=== PATIENT | female | born 1945 | race Caucasian/White ===

== ENCOUNTER → 2016-05-28 | Outpatient (CLI) | payer BC ==
--- NOTE | 2016-05-28 10:39 | DIAGNOSTIC IMAGING REPORT ---
LEFT HAND MIN 3 VIEWS ROUTINE CLINICAL HISTORY: M05.9 Rheumatoid arthritis, [id number] High risk medica COMPARISON: None. DISCUSSION: Bony mineralization appears normal for age. There are no acute fractures. There are osteoarthritic type changes present at the level of the interphalangeal joint of the thumb. There are periarticular calcifications located at the level of the interphalangeal joint of the thumb and distal interphalangeal joint of the third finger. Within the wrist, there are lucencies involving the capitate and hamate, possibly representing erosions. There is also a cystic lucency/erosion involving the base of the first metacarpal. IMPRESSION: 1. Osteoarthritic type changes most pronounced the level of the distal interphalangeal joint of third digit and interphalangeal joint of the thumb 2. No acute fractures 3. Normal mineralization for age 4. Cyst/bony erosions involving the capitate, hamate, and base of the first metacarpal. Electronically signed by: Stalin Belcher M.D. 05/28/2016 10:37 AM Dictated Date/Time: 05/28/2016 10:35 AM
--- NOTE | 2016-05-28 10:43 | DIAGNOSTIC IMAGING REPORT ---
RIGHT HAND MIN 3 VIEWS ROUTINE CLINICAL HISTORY: M05.9 Rheumatoid arthritis, [id number] High risk medica Right pain COMPARISON: None. DISCUSSION: Considerable degenerative change first carpometacarpal joint. Mild degenerative change of all additional carpometacarpal joints. Alignment is anatomic. There are no significant marginal erosions. There is no evidence for soft tissue swelling. IMPRESSION: Moderate degenerative change primarily at the first carpometacarpal joint. Mild degenerative change of all interphalangeal joints. No significant marginal erosions. Electronically signed by: Tim Coughlin M.D. 05/28/2016 10:42 AM Dictated Date/Time: 05/28/2016 10:35 AM
[2016-05-28 12:27] LABS: BASO % 0.4 %; BASO ABS # 0.02 K/uL (0-0.2); COMPLETE YES; EOS % 1.2 %; HEMATOCRIT 40.7 % (37-47); IG% 0.2 %; LYMPH % 28.7 %; MEAN CELL VOLUME 93.6 fL (80-100); MEAN CORPUSCULAR HEMOGLOBIN 31.7 pg (25-34); MEAN CORPUSCULAR HGB CONC 33.9 g/dl (32-36); MEAN PLATELET VOLUME 9.7 fL (7.4-10.4); MONO % 9.4 %; NEUT % 60.1 %; PLATELET COUNT 268 K/uL (130-400); RED BLOOD COUNT 4.35 M/uL (4.2-5.4); WHITE BLOOD COUNT 4.88 K/uL (4.8-10.8)
[2016-05-28 12:42] LABS: ALT/SGPT 48 U/L (12-78)
[2016-05-28 12:45] LABS: ALKALINE PHOSPHATASE 75 U/L (45-117); AST/SGOT 21 U/L (15-37)
== END | disposition home or self-care (01) ==
LOC: C.RAD1850 10:08
PROVIDERS: ATTEND Internal Medicine Rheumatology
DX: M05.9 Rheumatoid arthritis with rheumatoid factor, unspecified (principal); M15.9 Polyosteoarthritis, unspecified; Z79.899 Other long term (current) drug therapy

== ENCOUNTER → 2016-08-26 | Outpatient (CLI) | payer BC ==
[2016-08-26 12:30] LABS: BASO % 0.4 %; BASO ABS # 0.02 K/uL (0-0.2); COMPLETE YES; EOS % 1.9 %; HEMATOCRIT 41.6 % (37-47); IG% 0.2 %; LYMPH % 30.6 %; LYMPH ABS # 1.43 K/uL (1.2-3.4); MEAN CELL VOLUME 95.6 fL (80-100); MEAN CORPUSCULAR HEMOGLOBIN 31.3 pg (25-34); MEAN CORPUSCULAR HGB CONC 32.7 g/dl (32-36); MEAN PLATELET VOLUME 9.5 fL (7.4-10.4); MONO % 11.1 %; NEUT % 55.8 %; PLATELET COUNT 278 K/uL (130-400); RED BLOOD COUNT 4.35 M/uL (4.2-5.4); WHITE BLOOD COUNT 4.68 K/uL (4.8-10.8)
[2016-08-26 13:24] LABS: ALT/SGPT 51 U/L (12-78); AST/SGOT 24 U/L (15-37)
[2016-08-26 13:26] LABS: ALKALINE PHOSPHATASE 71 U/L (45-117)
== END | disposition home or self-care (01) ==
LOC: C.LAB1850 10:12
PROVIDERS: ATTEND Internal Medicine Rheumatology
DX: M05.9 Rheumatoid arthritis with rheumatoid factor, unspecified (principal); Z79.899 Other long term (current) drug therapy; M15.9 Polyosteoarthritis, unspecified

== ENCOUNTER → 2016-09-30 | Outpatient (CLI) | payer BC ==
--- NOTE | 2016-09-30 16:01 | MAMMOGRAPHY REPORT ---
BILATERAL DIGITAL SCREENING MAMMOGRAM WITH CAD: 09/30/2016 CLINICAL HISTORY: Routine screening. TECHNIQUE: Bilateral CC and MLO views were obtained. Current study was also evaluated with a Compute r Aided Detection (CAD) system. COMPARISON: Comparison is made to exams dated: 09/25/2015 mammogram, 09/21/2014 mammogram, 09/20/2013 m ammogram, 09/16/2012 mammogram, 09/16/2011 mammogram, and 09/10/2010 mammogram - [facility]ter. BREAST COMPOSITION: The tissue of both breasts is almost entirely fatty. FINDINGS: There are scattered bilateral benign round and rim calcifications. No suspicious mass, arc hitectural distortion or cluster of suspicious microcalcifications is seen. IMPRESSION: ACR BI-RADS CATEGORY 1: NEGATIVE There is no mammographic evidence of malignancy. A 1 year screening mammogram is recommended. The pa tient will receive written notification of the results. Approximately 10% of breast cancers are not detected with mammography. A negative mammographic report should not delay biopsy if a clinically suggestive mass is present. Carole Glass M.D. ay/:09/30/2016 14:41:26 [employer]: Timur Proctor RT(R)(M), [facility] letter sent: Normal 1/2 BI-RADS Code: ACR BI-RADS Category 1: Negative
== END | disposition home or self-care (01) ==
LOC: C.MAMM 09:53
PROVIDERS: ATTEND Nurse Practitioner
DX: Z12.31 Encounter for screening mammogram for malignant neoplasm of breast (principal)

== ENCOUNTER → 2016-10-04 | Outpatient (CLI) | payer BC ==
[2016-10-04 13:04] LABS: ESTIMATED AVERAGE GLUCOSE 151 mg/dl; HA1C FLAG Normal (Normal)
[2016-10-04 13:09] LABS: CHOLESTEROL/HDL RATIO 4.6
== END | disposition home or self-care (01) ==
LOC: C.LABPVFM 08:43
PROVIDERS: ATTEND Nurse Practitioner
DX: E11.9 Type 2 diabetes mellitus without complications (principal); E78.00 Pure hypercholesterolemia, unspecified

== ENCOUNTER → 2017-01-09 | Outpatient (CLI) | payer BC ==
[2017-01-09 12:49] LABS: BASO % 0.4 %; BASO ABS # 0.02 K/uL (0-0.2); COMPLETE YES; EOS % 1.1 %; IG% 0.2 %; LYMPH % 36.3 %; LYMPH ABS # 1.65 K/uL (1.2-3.4); MEAN CELL VOLUME 91.9 fL (80-100); MEAN CORPUSCULAR HEMOGLOBIN 30.9 pg (25-34); MEAN CORPUSCULAR HGB CONC 33.7 g/dl (32-36); MEAN PLATELET VOLUME 9.7 fL (7.4-10.4); MONO % 8.8 %; NEUT % 53.2 %; PLATELET COUNT 263 K/uL (130-400); RED BLOOD COUNT 4.46 M/uL (4.2-5.4); WHITE BLOOD COUNT 4.55 K/uL (4.8-10.8)
[2017-01-09 13:06] LABS: ALT/SGPT 41 U/L (12-78); AST/SGOT 22 U/L (15-37)
[2017-01-09 13:09] LABS: ALKALINE PHOSPHATASE 76 U/L (45-117)
== END | disposition home or self-care (01) ==
LOC: C.LAB1850 09:59
PROVIDERS: ATTEND Internal Medicine Rheumatology
DX: M05.9 Rheumatoid arthritis with rheumatoid factor, unspecified (principal); Z79.899 Other long term (current) drug therapy; M25.562 Pain in left knee

== ENCOUNTER → 2017-04-10 | Outpatient (CLI) | payer BC ==
[~2017-04-10] MED LIST: ALBINS NEB; ATOR-26 PO; FLM4 PO; FOLI1TAB8 PO; GLC/500 PO; GUAI1TAB69 PO; HYDR12.55 PO; KRIL1000 PO; LISI-725 PO; MELO7.5T5 PO; METH2.5T PO
[2017-04-10 13:12] LABS: HEMOGLOBIN A1C 6.7 % (4.5-5.6)
[2017-04-10 14:05] LABS: BLOOD UREA NITROGEN 27 mg/dl (7-18); CALCIUM 9.3 mg/dl (8.5-10.1); CARBON DIOXIDE 30 mmol/L (21-32); CREATININE 1.14 mg/dl (0.60-1.20); GLUCOSE 138 mg/dl (70-99); POTASSIUM 3.9 mmol/L (3.5-5.1); SODIUM 138 mmol/L (136-145)
[2017-04-10 14:08] LABS: CHOLESTEROL 235 mg/dl (0-200); LDL CHOLESTEROL CALCULATED 112 mg/dl
== END | disposition home or self-care (01) ==
LOC: C.LABPVFM 08:07
PROVIDERS: ATTEND Nurse Practitioner
DX: E11.9 Type 2 diabetes mellitus without complications (principal); I10 Essential (primary) hypertension; E78.00 Pure hypercholesterolemia, unspecified

== ENCOUNTER → 2017-05-12 | Outpatient (CLI) | payer BC ==
[2017-05-12 12:53] LABS: BASO % 0.2 %; BASO ABS # 0.01 K/uL (0-0.2); EOS ABS # 0.05 K/uL (0-0.5); HEMATOCRIT 42.5 % (37-47); HEMOGLOBIN 14.1 g/dL (12.0-16.0); IG# 0.01 K/uL (0.00-0.02); LYMPH ABS # 1.77 K/uL (1.2-3.4); MEAN CELL VOLUME 92.4 fL (80-100); MEAN CORPUSCULAR HEMOGLOBIN 30.7 pg (25-34); MEAN CORPUSCULAR HGB CONC 33.2 g/dl (32-36); MEAN PLATELET VOLUME 9.9 fL (7.4-10.4); MONO % 8.3 %; MONO ABS # 0.42 K/uL (0.11-0.59); NEUT % 55.3 %; NEUT ABS # 2.79 K/uL (1.4-6.5); PLATELET COUNT 254 K/uL (130-400); RED CELL DISTRIBUTION WIDTH SD 47.1 fL (36.4-46.3); WHITE BLOOD COUNT 5.05 K/uL (4.8-10.8)
[2017-05-12 14:06] LABS: ALBUMIN 3.9 gm/dl (3.4-5.0); ALKALINE PHOSPHATASE 73 U/L (45-117); ALT/SGPT 48 U/L (12-78); AST/SGOT 22 U/L (15-37); TOTAL PROTEIN 7.5 gm/dl (6.4-8.2)
== END | disposition home or self-care (01) ==
LOC: C.LAB1850 10:16
PROVIDERS: ATTEND Internal Medicine Rheumatology
DX: M05.9 Rheumatoid arthritis with rheumatoid factor, unspecified (principal); Z79.899 Other long term (current) drug therapy; M25.562 Pain in left knee

== ENCOUNTER 2017-07-05 07:30 | Observation (INO) | payer BC ==
[~2017-07-05] VITALS: Ht 167.6 cm; Wt 81.9 kg
[2017-07-05] MEDS ORDERED: MoRPHine SULFATE 10 MG/ML CARP/VIAL IV STA (07:49)
[2017-07-05] MEDS ORDERED: ONDANSETRON INJ 2 MG/ML 2 ML VIAL IV STA (07:49)
[2017-07-05 08:11] LABS: BASO % 0.1 %; BASO ABS # 0.01 K/uL (0-0.2); EOS % 0.8 %; EOS ABS # 0.06 K/uL (0-0.5); HEMOGLOBIN 13.3 g/dL (12.0-16.0); IG# 0.01 K/uL (0.00-0.02); LYMPH % 17.8 %; LYMPH ABS # 1.41 K/uL (1.2-3.4); MEAN CELL VOLUME 89.7 fL (80-100); MEAN CORPUSCULAR HEMOGLOBIN 30.6 pg (25-34); MEAN CORPUSCULAR HGB CONC 34.1 g/dl (32-36); MEAN PLATELET VOLUME 9.4 fL (7.4-10.4); MONO % 4.9 %; MONO ABS # 0.39 K/uL (0.11-0.59); NEUT % 76.3 %; NEUT ABS # 6.06 K/uL (1.4-6.5); PLATELET COUNT 238 K/uL (130-400); RED CELL DISTRIBUTION WIDTH CV 13.8 % (11.5-14.5); RED CELL DISTRIBUTION WIDTH SD 45.2 fL (36.4-46.3); WHITE BLOOD COUNT 7.94 K/uL (4.8-10.8)
[2017-07-05] MEDS ORDERED: GLC/500 PO (08:20)
[2017-07-05] MEDS ORDERED: LISI-725 PO (08:20)
[2017-07-05] MEDS ORDERED: METH2.5T PO (08:20)
[2017-07-05] MEDS ORDERED: MELO7.5T5 PO (08:20)
[2017-07-05] MEDS ORDERED: FOLI1TAB8 PO (08:20)
[2017-07-05] MEDS ORDERED: HYDR12.55 PO (08:20)
[2017-07-05] MEDS ORDERED: ATOR-26 PO (08:20)
[2017-07-05] MEDS ORDERED: ALBINS NEB (08:20)
[2017-07-05] MEDS ORDERED: KRIL1000 PO (08:20)
[2017-07-05] MEDS ORDERED: GUAI1TAB69 PO (08:20)
--- NOTE | 2017-07-05 08:24 | EMERGENCY ROOM VISIT NOTE ---
History First contact with patient: 07:37 Chief Complaint: HIP PAIN Stated Complaint: LEFT SIDED HIP PAIN History of Present Illness The patient is a 71 year old female who presents to the Emergency Room with complaints of pain in her left hip. The patient reports that she had a sudden onset of pain in the left hip/pelvis which started approximately 2.5 hours ago. She states that she was okay last night and got up in the middle of the night to go to the bathroom. She then woke up with severe and sudden onset of pain. She rates the discomfort a 10/10 and states it is a sharp pain which is hard to describe. The pain radiates from the back to the lower abdomen. She has been nauseous and had one episode of vomiting which she feels may have been secondary to the pain. She states that she attempted to walk around and change position without any improvement of her symptoms. The pain does not radiate into her leg. She denies numbness or weakness. She does report a history of rheumatoid arthritis and osteoarthritis and has occasional aches in her back and right hip. She recently had her meloxicam dosage lowered. She denies chest pain, shortness of breath, changes in bowel movements or urinary symptoms. Review of Systems A complete 10 point review of systems was reviewed with the patient with pertinent positives and negatives as per history of present illness. All else were negative. Past Medical/Surgical History Medical Problems: (1) Diabetes mellitus, type II (2) Hyperlipidemia (3) Hypertension (4) Nephrolithiasis (5) Rheumatoid arthritis Social History Smoking Status: Former Smoker Housing Status: lives with family Current/Historical Medications Scheduled Atorvastatin (Lipitor), 80 MG PO DAILY Folic Acid (Folvite), 1 MG PO DAILY Hydrochlorothiazide (Hydrochlorothiazide), 1 TAB PO DAILY Krill Oil (Krill Oil), 1 CAP PO BID Lisinopril (Zestril), 20 MG PO DAILY Meloxicam (Mobic), 7.5 MG PO DAILY Metformin Hcl (Glucophage), 500 MG PO BID Methotrexate (Methotrexate), 2.5 MG PO WK Scheduled PRN Albuterol Sulf (Albuterol Sulfate), 1 DOSE NEB Q6 PRN for SOB/Wheezing Guaifenesin (Mucinex Maximum Strength), 1 TAB PO BID PRN for Nasal Congestion Physical Exam Vital Signs Date Time Temp Pulse Resp B/P (MAP) Pulse Ox O2 Delivery O2 Flow Rate FiO2 3/31/18 11:37 61 18 167/88 99 Room Air 07/05/17 09:40 71 16 153/91 100 Room Air 07/05/17 08:45 64 20 166/88 99 Room Air 07/05/17 07:35 36.4 81 20 182/90 97 Room Air Physical Exam VITALS: Vitals are noted on the nurse's note and reviewed by myself. Vital signs stable. GENERAL: This is a 71-year-old female, in no acute distress, nondiaphoretic, well-developed well-nourished. SKIN: The skin was without rashes. NECK: Supple without nuchal rigidity. HEART: Regular rate and rhythm without murmurs gallops or rubs. LUNGS: Clear to auscultation bilaterally without wheezes, rales or rhonchi. ABDOMEN: Positive bowel sounds x 4. Soft, mild tenderness in the left lower quadrant. No guarding or rebound tenderness. MUSCULOSKELETAL: Mild, vague tenderness in the left lumbar region. NEURO: Patient was alert and oriented to person place and time. Medical Decision & Procedures ER Provider Diagnostic Interpretation: CT SCAN OF THE ABDOMEN AND PELVIS WITHOUT IV CONTRAST IMPRESSION: 1. There is mild left hydroureteronephrosis. There is likely a 4 mm obstructing calculus in the left proximal ureter at the level of L4. The calcification is difficult to definitively localize within the left ureter secondary to significant adjacent streak artifact from metallic orthopedic hardware. A phlebolith is considered less likely. 2. Additional bilateral nonobstructing calculi are present in both kidneys. 3. Hepatomegaly and hepatic steatosis. 4. Mild colonic diverticulosis without CT evidence of acute diverticulitis. Laboratory Results 07/05/17 08:00 Red Blood Count 4.35, Mean Corpuscular Volume 89.7, Mean Corpuscular Hemoglobin 30.6, Mean Corpuscular Hemoglobin Concent 34.1, Mean Platelet Volume 9.4, Neutrophils (%) (Auto) 76.3, Lymphocytes (%) (Auto) 17.8, Monocytes (%) (Auto) 4.9, Eosinophils (%) (Auto) 0.8, Basophils (%) (Auto) 0.1, Neutrophils # (Auto) 6.06, Lymphocytes # (Auto) 1.41, Monocytes # (Auto) 0.39, Eosinophils # (Auto) 0.06, Basophils # (Auto) 0.01 07/05/17 08:00 Test 07/05/17 08:00 07/05/17 09:30 White Blood Count 7.94 K/uL (4.8-10.8) Red Blood Count 4.35 M/uL (4.2-5.4) Hemoglobin 13.3 g/dL (12.0-16.0) Hematocrit 39.0 % (37-47) Mean Corpuscular Volume 89.7 fL (80-100) Mean Corpuscular Hemoglobin 30.6 pg (25-34) Mean Corpuscular Hemoglobin Concent 34.1 g/dl (32-36) Platelet Count 238 K/uL (130-400) Mean Platelet Volume 9.4 fL (7.4-10.4) Neutrophils (%) (Auto) 76.3 % Lymphocytes (%) (Auto) 17.8 % Monocytes (%) (Auto) 4.9 % Eosinophils (%) (Auto) 0.8 % Basophils (%) (Auto) 0.1 % Neutrophils # (Auto) 6.06 K/uL (1.4-6.5) Lymphocytes # (Auto) 1.41 K/uL (1.2-3.4) Monocytes # (Auto) 0.39 K/uL (0.11-0.59) Eosinophils # (Auto) 0.06 K/uL (0-0.5) Basophils # (Auto) 0.01 K/uL (0-0.2) RDW Standard Deviation 45.2 fL (36.4-46.3) RDW Coefficient of Variation 13.8 % (11.5-14.5) Immature Granulocyte % (Auto) 0.1 % Immature Granulocyte # (Auto) 0.01 K/uL (0.00-0.02) Anion Gap 10.0 mmol/L (3-11) Est Creatinine Clear Calc Drug Dose 40.3 ml/min Estimated GFR () 44.9 Estimated GFR (Non- 38.8 BUN/Creatinine Ratio 21.5 (10-20) Calcium Level 9.6 mg/dl (8.5-10.1) Total Bilirubin 0.6 mg/dl (0.2-1) Aspartate Amino Transf (AST/SGOT) 23 U/L (15-37) Alanine Aminotransferase (ALT/SGPT) 38 U/L (12-78) Alkaline Phosphatase 78 U/L (45-117) Total Protein 7.7 gm/dl (6.4-8.2) Albumin 4.0 gm/dl (3.4-5.0) Globulin 3.7 gm/dl (2.5-4.0) Albumin/Globulin Ratio 1.1 (0.9-2) Urine Color YELLOW Urine Appearance CLEAR (CLEAR) Urine pH 8.5 (4.5-7.5) Urine Specific [place] 1.020 (1.000-1.030) Urine Protein NEG (NEG) Urine Glucose (UA) NEG (NEG) Urine Ketones NEG (NEG) Urine Occult Blood 3+ (NEG) Urine Nitrite NEG (NEG) Urine Bilirubin NEG (NEG) Urine Urobilinogen NEG (NEG) Urine Leukocyte Esterase TRACE (NEG) Urine WBC (Auto) 1-5 /hpf (0-5) Urine RBC (Auto) >30 /hpf (0-4) Urine Hyaline Casts (Auto) 1-5 /lpf (0-5) Urine Epithelial Cells (Auto) 10-20 /lpf (0-5) Urine Bacteria (Auto) NEG (NEG) Medications Administered Medications (Trade) Dose Ordered Sig/Didier Route Start Time Stop Time Status Last Admin Dose Admin Morphine Sulfate (MoRPHine SULFATE INJ) 6 mg NOW STAT IV 07/05/17 07:49 07/05/17 07:51 DC 07/05/17 08:07 6 MG Ondansetron HCl (Zofran Inj) 4 mg NOW STAT IV 07/05/17 07:49 07/05/17 07:51 DC 07/05/17 08:07 4 MG Hydromorphone HCl (Dilaudid Inj) 0.5 mg NOW STAT IV 07/05/17 08:30 07/05/17 08:31 DC 07/05/17 08:45 0.5 MG Sodium Chloride 1,000 ml @ 999 mls/hr Q1H1M STAT IV 07/05/17 08:34 07/05/17 09:34 DC 07/05/17 08:45 999 MLS/HR Hydromorphone HCl (Dilaudid Inj) 0.5 mg NOW STAT IV 07/05/17 10:28 07/05/17 10:29 DC 3/31/18 10:53 0.5 MG Tamsulosin HCl (Flomax Cap) 0.4 mg NOW ONCE PO 07/05/17 11:45 07/05/17 11:46 DC 07/05/17 11:47 0.4 MG ED Course The patient was evaluated as above. Labs were drawn and IV access was obtained. Patient was medicated with 6 mg morphine and 4 mg Zofran IV. Patient reported no improvement of pain. 0.5 mg Dilaudid was ordered. She was also given 1 L normal saline solution. CT of the abdomen and pelvis was performed and read by radiology as above. Patient was reevaluated and stated she is still having a significant amount of pain. She does not feel she will be able to go home. She was given 0.5 mg Dilaudid. She will be admitted for pain control. [facility] They agreed to evaluate the patient for admission. Medical Decision Differential diagnosis includes kidney stone, diverticulitis, bowel obstruction , musculoskeletal pain, lumbar radiculopathy, among others. The patient is a 71-year-old female who presents today complaining of left hip/ pelvic pain. On exam this seemed to actually be left flank pain radiating into the left lower abdomen. CT did show hydroureteronephrosis of the left kidney as well as a probable 4 mm stone in the proximal ureter. Labs revealed no leukocytosis or anemia. Creatinine is 1.36, slightly elevated from the patient' s baseline. Urinalysis was not suggestive of infection, but was remarkable for 3+ blood. Patient was treated with several rounds of narcotic pain medication and still in a significant amount of pain. Options of care were discussed with the patient including admission for pain control versus discharge home in the patient does not feel she can be discharged home at this time. She may benefit from an anti-inflammatory, although has listed allergies to anti-inflammatories so these were avoided in the ED. The case was discussed with the [facility] who will admit the patient for further evaluation. The patient was independently evaluated by Dr. Keith, ED attending physician, who agreed with my assessment and treatment plan. Medication Reconcilliation Current Medication List: was personally reviewed by me Blood Pressure Screening Patient's blood pressure: Normal blood pressure Impression Primary Impression: Kidney stone Departure Information Referrals Ariana Gonzalez C.R.N.P (PCP) Patient Instructions [facility]
[2017-07-05 08:29] LABS: CALCIUM 9.6 mg/dl (8.5-10.1); CREATININE 1.36 mg/dl (0.60-1.20); POTASSIUM 3.7 mmol/L (3.5-5.1)
[2017-07-05] MEDS ORDERED: HYDROmorphone INJ 0.5 MG/0.5 ML SYR IV STA ×2 (08:30→10:28)
[2017-07-05 08:32] LABS: TOTAL PROTEIN 7.7 gm/dl (6.4-8.2)
[2017-07-05] MEDS ORDERED: SODIUM CHLORIDE 0.9% 1000ML 1,000 ML IV STA (08:34)
--- NOTE | 2017-07-05 08:44 | DIAGNOSTIC IMAGING REPORT ---
CT SCAN OF THE ABDOMEN AND PELVIS WITHOUT IV CONTRAST CLINICAL HISTORY: Left lower quadrant abdominal pain. COMPARISON STUDY: No priors. TECHNIQUE: CT scan of the abdomen and pelvis is performed from the lung bases to the proximal femora. Images are reviewed in the axial, sagittal, and coronal planes. IV contrast was not administered for this examination as per the referring clinician. A dose lowering technique was utilized adhering to the principles of ALARA. CT DOSE: 1552.22 mGy.cm FINDINGS: Lung bases: The heart is normal in size and without pericardial effusion. A small fat-containing Bochdalek hernia is seen at the left lung base. The lung bases are otherwise clear. There is a small hiatal hernia. Liver: The unenhanced liver is enlarged, measuring 19.5 cm in length. The liver demonstrates diminished attenuation consistent with hepatic steatosis. There is no intrahepatic biliary ductal dilatation. Gallbladder: Unremarkable. Spleen: Normal in size and attenuation. Pancreas: Unremarkable. Adrenal glands: Unremarkable. Kidneys: The unenhanced kidneys demonstrate cortical atrophy. There is no right-sided hydronephrosis. There is mild left-sided hydroureteronephrosis with associated perinephric stranding. The right proximal ureter is not well assessed due to significant streak artifact from adjacent orthopedic hardware. A 4 mm calculus anterior to the left psoas muscle at the level of L4 seen on #200 may represent an obstructing left ureteral calculus or less likely a phlebolith along the course of the gonadal vein. A 1.3 cm exophytic cyst arises from the left kidney. There are least 3 additional punctate nonobstructing left renal calculi. There are at least 3 punctate nonobstructing right renal calculi. Small parapelvic cysts are noted on the right. There is a circumaortic left renal vein. Abdominal vasculature: The abdominal aorta is normal in course and caliber noting moderate atherosclerotic calcification. Bowel: There is mild colonic diverticulosis without CT evidence of acute diverticulitis. No bowel obstruction is seen. The appendix is well-visualized and normal. Peritoneum: There is no intraperitoneal free air or abdominal ascites. Lymphadenopathy: None. Pelvic viscera: The bladder is normal as visualized. The uterus is surgically absent. No adnexal lesion is seen. Skeletal structures: The skeletal structures are osteopenic. There is moderate lumbosacral spondylosis with postoperative changes from L4 -S1 spinal fusion. A bone graft donor site is suggested in the right ilium. No lytic or blastic lesions are seen. IMPRESSION: 1. There is mild left hydroureteronephrosis. There is likely a 4 mm obstructing calculus in the left proximal ureter at the level of L4. The calcification is difficult to definitively localize within the left ureter secondary to significant adjacent streak artifact from metallic orthopedic hardware. A phlebolith is considered less likely. 2. Additional bilateral nonobstructing calculi are present in both kidneys. 3. Hepatomegaly and hepatic steatosis. 4. Mild colonic diverticulosis without CT evidence of acute diverticulitis. Electronically signed by: Sathya Mccartney M.D. 07/05/2017 8:43 AM Dictated Date/Time: 07/05/2017 8:30 AM
[2017-07-05] MEDS ORDERED: TAMSULOSIN HCL 0.4 MG CAP PO ONE (11:45)
--- NOTE | 2017-07-05 11:58 | History and Physical ---
History & Physical Date & Time of Service: Jul 05, 2017 at 11:49 Chief Complaint: Left Sided Hip Pain Primary Care Physician: Ariana Gonzalez C.R.N.P History of Present Illness Mrs. Barb Starkey is a 71 year old with past medical history significant for rheumatoid arthritis on methotrexate therapy, hyperlipidemia, hypertension, diabetes mellitus type 2. Patient was in her usual state of health until early this morning when she woke up at 05:00 with significant left flank discomfort. Initially felt as a intense pressure which progressed to a severe intense ache with a 10 out of 10 in severity. Pain starts at left flank and radiating through her side and stops at periumbilical region and groin. No aggravating or alleviating factors. Associated symptoms include vomiting 2 which was nonbilious and nonbloody and intermittent nausea. No sick contacts or recent travel. Denies fevers, chills, chest pain, shortness of breath, diaphoresis. No urinary or vaginal symptoms. No recent trauma or falls. Otherwise rest of ROS is negative. In the emergency department patient had CT imaging performed that showed obstructing stone with mild hydronephrosis. She was given intravenous morphine which has helped with the pain and is currently a 6 out of 10. Patient is afebrile hemodynamically stable. Of note patient denies any previous HX of nephrolithiasis Past Medical/Surgical History Medical Problems: (1) Diabetes mellitus, type II (2) Hyperlipidemia (3) Hypertension (4) Rheumatoid arthritis Social History Smoking Status: Former Smoker Allergies Coded Allergies: Iodinated Diagnostic Agents (Unverified Allergy, Unknown, ., 07/05/17) Iodine (Unverified Allergy, Unknown, SWELLING/DIFFICULTY BREATHING, ) Piroxicam (Unverified Allergy, Unknown, ., 07/05/17) Indomethacin (Unverified Adverse Reaction, Severe, N/V, 07/05/17) Home Medications Scheduled Atorvastatin (Lipitor), 80 MG PO DAILY Folic Acid (Folvite), 1 MG PO DAILY Hydrochlorothiazide (Hydrochlorothiazide), 1 TAB PO DAILY Krill Oil (Krill Oil), 1 CAP PO BID Lisinopril (Zestril), 20 MG PO DAILY Meloxicam (Mobic), 7.5 MG PO DAILY Metformin Hcl (Glucophage), 500 MG PO BID Methotrexate (Methotrexate), 2.5 MG PO WK Scheduled PRN Albuterol Sulf (Albuterol Sulfate), 1 DOSE NEB Q6 PRN for SOB/Wheezing Guaifenesin (Mucinex Maximum Strength), 1 TAB PO BID PRN for Nasal Congestion Review of Systems Constitutional: No fever, No chills, No sweats, No weight loss, No weakness, No fatigue, No problem reported Eyes: No worsening of vision, No eye pain, No redness, No discharge, No diplopia, No problem reported ENT: No hearing loss, No unusual epistaxis, No nasal symptoms, No sore throat, No tinnitus, No dental problems, No trouble swallowing, No problem reported Respiratory: No cough, No sputum, No wheezing, No shortness of breath, No dyspnea on exertion, No dyspnea at rest, No hemoptysis, No problem reported Abdomen: No pain, No nausea, No vomiting, No diarrhea, No constipation, No GI bleeding, No problem reported Musculoskeletal: + muscle pain Genitourinary - Female: No dysuria, No urinary frequency, No urinary urgency, No urinary incontinence, No urinary retention, No hematuria, No dysmenorrhea, No menorrhagia, No metrorrhagia, No rash, No vaginal bleeding, No vaginal discharge, No vaginal itching, No vulvodynia, No , No problem reported Neurologic: No memory loss, No paralysis, No weakness, No numbness/tingling, No vertigo, No balance problems, No problem reported Psychiatric: No depression symptoms, No anhedonism, No anxiety, No insomnia, No substance abuse, No problem reported Hematologic / Lymphatic: No abnormal bleeding/bruising, No clotting problems, No swollen lymph nodes, No night sweats, No problem reported Physical Exam Vital Signs Date Time Temp Pulse Resp B/P (MAP) Pulse Ox O2 Delivery O2 Flow Rate FiO2 07/05/17 11:37 61 18 167/88 99 Room Air 07/05/17 09:40 71 16 153/91 100 Room Air 07/05/17 08:45 64 20 166/88 99 Room Air 07/05/17 07:35 36.4 81 20 182/90 97 Room Air General Appearance: WD/WN, + mild distress (2/2 left flank pain) Head: normocephalic, atraumatic Eyes: normal inspection, PERRL, EOMI ENT: normal ENT inspection Neck: supple, no adenopathy, no JVD Respiratory/Chest: chest non-tender, lungs clear, normal breath sounds, no respiratory distress, no accessory muscle use Cardiovascular: regular rate, rhythm, no edema, no gallop, no JVD, no murmur Abdomen/GI: normal bowel sounds, non tender, soft, no organomegaly Back: + left CVA tenderness Extremities/Musculoskelatal: no pedal edema, non-tender Neurologic/Psych: no motor/sensory deficits, normal mood/affect, oriented x 3 Diagnostics Laboratory Results Results Past 24 Hours Test 07/05/17 08:00 07/05/17 09:30 Range/Units White Blood Count 7.94 4.8-10.8 K/uL Red Blood Count 4.35 4.2-5.4 M/uL Hemoglobin 13.3 12.0-16.0 g/dL Hematocrit 39.0 37-47 % Mean Corpuscular Volume 89.7 80-100 fL Mean Corpuscular Hemoglobin 30.6 25-34 pg Mean Corpuscular Hemoglobin Concent 34.1 32-36 g/dl Platelet Count 238 130-400 K/uL Mean Platelet Volume 9.4 7.4-10.4 fL Neutrophils (%) (Auto) 76.3 % Lymphocytes (%) (Auto) 17.8 % Monocytes (%) (Auto) 4.9 % Eosinophils (%) (Auto) 0.8 % Basophils (%) (Auto) 0.1 % Neutrophils # (Auto) 6.06 1.4-6.5 K/uL Lymphocytes # (Auto) 1.41 1.2-3.4 K/uL Monocytes # (Auto) 0.39 0.11-0.59 K/uL Eosinophils # (Auto) 0.06 0-0.5 K/uL Basophils # (Auto) 0.01 0-0.2 K/uL RDW Standard Deviation 45.2 36.4-46.3 fL RDW Coefficient of Variation 13.8 11.5-14.5 % Immature Granulocyte % (Auto) 0.1 % Immature Granulocyte # (Auto) 0.01 0.00-0.02 K/uL Sodium Level 139 136-145 mmol/L Potassium Level 3.7 3.5-5.1 mmol/L Chloride Level 105 98-107 mmol/L Carbon Dioxide Level 24 21-32 mmol/L Anion Gap 10.0 3-11 mmol/L Blood Urea Nitrogen 29 7-18 mg/dl Creatinine 1.36 0.60-1.20 mg/dl Est Creatinine Clear Calc Drug Dose 40.3 ml/min Estimated GFR () 44.9 Estimated GFR (Non- 38.8 BUN/Creatinine Ratio 21.5 10-20 Random Glucose 182 70-99 mg/dl Calcium Level 9.6 8.5-10.1 mg/dl Total Bilirubin 0.6 0.2-1 mg/dl Aspartate Amino Transf (AST/SGOT) 23 15-37 U/L Alanine Aminotransferase (ALT/SGPT) 38 12-78 U/L Alkaline Phosphatase 78 45-117 U/L Total Protein 7.7 6.4-8.2 gm/dl Albumin 4.0 3.4-5.0 gm/dl Globulin 3.7 2.5-4.0 gm/dl Albumin/Globulin Ratio 1.1 0.9-2 Urine Color YELLOW Urine Appearance CLEAR CLEAR Urine pH 8.5 4.5-7.5 Urine Specific [place] 1.020 1.000-1.030 Urine Protein NEG NEG Urine Glucose (UA) NEG NEG Urine Ketones NEG NEG Urine Occult Blood 3+ NEG Urine Nitrite NEG NEG Urine Bilirubin NEG NEG Urine Urobilinogen NEG NEG Urine Leukocyte Esterase TRACE NEG Urine WBC (Auto) 1-5 0-5 /hpf Urine RBC (Auto) >30 0-4 /hpf Urine Hyaline Casts (Auto) 1-5 0-5 /lpf Urine Epithelial Cells (Auto) 10-20 0-5 /lpf Urine Bacteria (Auto) NEG NEG Diagnostic Radiology CT A/P w/o contrast IMPRESSION 1. There is mild left hydroureteronephrosis. There is likely a 4 mm obstructing calculus in the left proximal ureter at the level of L4. The calcification is difficult to definitively localize within the left ureter secondary to significant adjacent streak artifact from metallic orthopedic hardware. A phlebolith is considered less likely. 2. Additional bilateral nonobstructing calculi are present in both kidneys. 3. Hepatomegaly and hepatic steatosis. 4. Mild colonic diverticulosis without CT evidence of acute diverticulitis. Impression Assessment and Plan HELEN 71/F admitted for nephrolithiasis. She continues to be in pain and having intermittent nausea. CT imaging obtained in the ED reveals stones with mild left hydronephrosis. 1) Nephrolithiasis with hydronephrosis - intravenous hydration - IV morphine for pain management - order toradol x1 now - Urology consultation; will appreciate recommendations 2) Diabetes Mellitus type II - check CBG as per nursing - insulin sliding scale 3) Hypertension - systolic in 160's likely 2/2 to pain - resume home antihypertensive therapy 4) Hyperlipidemia - stable; no active issues - resume atorvastatin 80 mg PO qHS 5) Hx of Rheumatoid arthritis - stable; no active issues - resume weekly MTX q Friday Admit: Med/Surg Diet: Heart Healthy Activity ad parish DVT ppx SQ heparin Precautions: Standard Code Status: FULL Resuscitation Status VTE Prophylaxis Will order VTE Prophylaxis: Yes
[2017-07-05] MEDS ORDERED: GLUCAGON FOR INJ 1 MG VIAL SQ PRN (12:00)
[2017-07-05] MEDS ORDERED: GLUCOSE 40% GEL 15 GM TUBE PO PRN (12:00)
[2017-07-05] MEDS ORDERED: GLUCOSE 10 TABS/TUBE PO PRN (12:00)
[2017-07-05] MEDS ORDERED: DEXTROSE 50% 50 ML SYR IV PRN (12:00)
[2017-07-05] MEDS ORDERED: MoRPHine SULFATE 4 MG/ML 1 ML CARP\\VIAL IV PRN (12:15)
[2017-07-05] MEDS ORDERED: MoRPHine SULFATE 2 MG/ML CARP IV PRN ×2 (12:15)
--- NOTE | 2017-07-05 12:21 | EMERGENCY ROOM VISIT NOTE ---
ED Visit Note First contact with patient: 07:37 I have personally evaluated this patient examined her and reviewed the pertinent labs and data. I have discussed the case with Kaye Bland, the physician assistant professor of marine biology and agree with the plan. Please refer to the PA note. This patient comes in as described above. She has significant flank pain. On my exam, she complains of pain but has no appreciable tenderness. CAT scan shows a proximal 4 mm stone. She's had multiple doses of IV pain medication. She has no fever or white count to suggest infection. We are going to mid of her pain management further treatment and evaluation. The patient is happy with the plan.
[2017-07-05 12:30] VITALS: O2SAT 99; Ht 167.6 cm; Wt 81.9 kg
[2017-07-05 13:00] VITALS: BP 139/73; PULSE 60; TEMP 36.8; O2SAT 98
[2017-07-05] MEDS ORDERED: IV FLUIDS COMPLETED PRN (14:15)
[2017-07-05 15:07] VITALS: BP 101/62; PULSE 57; TEMP 37.1; O2SAT 97
[2017-07-05] MEDS: HEPARIN SOD 5000 UNIT/0.5 ML CARP SQ SCH ×2 (15:26→22:38)
[2017-07-05] MEDS: SODIUM CHLORIDE 0.9% 1000ML 1,000 ML IV SCH (15:31)
[2017-07-05] MEDS: INSULIN ASPART 100 UNITS/ML 3 ML PEN SC SCH ×2 (17:15→21:00)
[2017-07-05] MEDS: METFORMIN HCL 500 MG TAB PO SCH (18:05)
[2017-07-05 23:20] VITALS: BP 139/75; PULSE 60; TEMP 37; O2SAT 97
[2017-07-06] MEDS: SODIUM CHLORIDE 0.9% 1000ML 1,000 ML IV SCH ×2 (01:49→11:35)
[2017-07-06] MEDS: HEPARIN SOD 5000 UNIT/0.5 ML CARP SQ SCH ×2 (07:17→13:43)
[2017-07-06 07:30] VITALS: BP 166/80; PULSE 63; TEMP 36.7; O2SAT 97
[2017-07-06] MEDS: INSULIN ASPART 100 UNITS/ML 3 ML PEN SC SCH ×3 (08:00→17:15)
[2017-07-06] MEDS ORDERED: HYDROCHLOROTHIAZIDE 25 MG TAB PO SCH (09:00)
[2017-07-06] MEDS ORDERED: ATORVASTATIN 40 MG TAB PO SCH (09:00)
[2017-07-06] MEDS ORDERED: LISINOPRIL 20 MG TAB PO SCH (09:00)
[2017-07-06] MEDS ORDERED: MELOXICAM 7.5 MG TAB PO SCH (09:00)
[2017-07-06 09:13] LABS: HEMATOCRIT 35.4 % (37-47); HEMOGLOBIN 11.9 g/dL (12.0-16.0); MEAN CELL VOLUME 90.1 fL (80-100); MEAN CORPUSCULAR HEMOGLOBIN 30.3 pg (25-34); MEAN CORPUSCULAR HGB CONC 33.6 g/dl (32-36); PLATELET COUNT 213 K/uL (130-400); RED CELL DISTRIBUTION WIDTH CV 13.9 % (11.5-14.5); RED CELL DISTRIBUTION WIDTH SD 46.1 fL (36.4-46.3); WHITE BLOOD COUNT 4.42 K/uL (4.8-10.8)
[2017-07-06 09:40] LABS: CALCIUM 8.5 mg/dl (8.5-10.1); CREATININE 1.04 mg/dl (0.60-1.20); POTASSIUM 3.8 mmol/L (3.5-5.1)
[2017-07-06] MEDS: METFORMIN HCL 500 MG TAB PO SCH ×2 (09:44→17:56)
[2017-07-06] MEDS ORDERED: ACETAMINOPHEN 325 MG TAB PO STA ×2 (09:56→16:32)
--- NOTE | 2017-07-06 11:58 | Urology Consultation ---
History General Date of Service: Jul 06, 2017. Primary Care Physician: Ariana Gonzalez C.R.N.P History of Present Illness Patient is a 71-year-old white female admitted to the emergency room with left flank pain. Pain was colicky in nature. She denies any fevers or chills. His never had a stone before. Denies any voiding difficulties. Currently she says she is not having any pain. Is also having no nausea or vomiting Laboratory Last Vital Signs Documentation Date Time Temp Pulse Resp B/P (MAP) Pulse Ox O2 Delivery O2 Flow Rate FiO2 07/06/17 07:52 Room Air 07/06/17 07:30 36.7 63 18 166/80 (108) 97 Last 24 Hours Test 07/05/17 13:10 07/05/17 13:15 07/05/17 16:58 07/05/17 20:34 Prothrombin Time 10.7 SECONDS Prothromb Time International Ratio 1.0 Bedside Glucose 149 mg/dl 116 mg/dl 124 mg/dl Test 07/06/17 08:12 07/06/17 08:59 Bedside Glucose 143 mg/dl White Blood Count 4.42 K/uL Red Blood Count 3.93 M/uL Hemoglobin 11.9 g/dL Hematocrit 35.4 % Mean Corpuscular Volume 90.1 fL Mean Corpuscular Hemoglobin 30.3 pg Mean Corpuscular Hemoglobin Concent 33.6 g/dl RDW Standard Deviation 46.1 fL RDW Coefficient of Variation 13.9 % Platelet Count 213 K/uL Mean Platelet Volume 9.0 fL Sodium Level 140 mmol/L Potassium Level 3.8 mmol/L Chloride Level 109 mmol/L Carbon Dioxide Level 28 mmol/L Anion Gap 3.0 mmol/L Blood Urea Nitrogen 20 mg/dl Creatinine 1.04 mg/dl Est Creatinine Clear Calc Drug Dose 52.7 ml/min Estimated GFR () 62.2 Estimated GFR (Non- 53.6 BUN/Creatinine Ratio 19.2 Random Glucose 137 mg/dl Calcium Level 8.5 mg/dl Labs were reviewed and are within normal limits unless listed below. Labs are available in the chart and at [facility] Problem List Medical Problems: (1) Kidney stone Status: Acute Social History Hx Tobacco Use In Past Year?: No History of MDRO No Allergies Coded Allergies: Iodinated Diagnostic Agents (Unverified Allergy, Unknown, ., 07/05/17) Iodine (Unverified Allergy, Unknown, SWELLING/DIFFICULTY BREATHING, ) Piroxicam (Unverified Allergy, Unknown, ., 07/05/17) Indomethacin (Unverified Adverse Reaction, Severe, N/V, 07/05/17) Medications Home Medications: Home Meds and Scripts Medications Dose Route/Sig Max Daily Dose Days Date Category Mucinex Maximum Strength (Guaifenesin) 1,200 Mg Tab 1 Tab PO BID PRN 07/05/17 Reported Albuterol Sulfate (Albuterol Sulf) 2.5 Mg/3 Ml Nebu 1 Dose NEB Q6 PRN 07/05/17 Reported Krill Oil 1 Cap Cap 1 Cap PO BID 07/05/17 Reported Folvite (Folic Acid) 1 Mg Tab 1 Mg PO DAILY 07/05/17 Reported Hydrochlorothiazide 12.5 Mg Tab 1 Tab PO DAILY 07/05/17 Reported Mobic (Meloxicam) 7.5 Mg Tab 7.5 Mg PO DAILY 07/05/17 Reported Glucophage (Metformin Hcl) 500 Mg Tab 500 Mg PO BID 07/05/17 Reported Zestril (Lisinopril) 20 Mg Tab 20 Mg PO DAILY 07/05/17 Reported Lipitor (Atorvastatin Calcium) 80 Mg Tab 80 Mg PO DAILY 07/05/17 Reported Methotrexate 2.5 Mg Tab 2.5 Mg PO WK 07/05/17 Reported Inpatient Medications: Current Inpatient Medications Medications (Trade) Dose Ordered Sig/Didier Route Start Time Stop Time Status Last Admin Dose Admin Atorvastatin Calcium (Lipitor Tab) 80 mg DAILY PO 07/06/17 09:00 08/05/17 08:59 07/06/17 09:44 80 MG Folic Acid (Folvite Tab) 1 mg DAILY PO 07/06/17 09:00 08/05/17 08:59 07/06/17 09:44 1 MG Lisinopril (Zestril Tab) 20 mg DAILY PO 07/06/17 09:00 08/05/17 08:59 07/06/17 09:43 20 MG Meloxicam (Mobic Tab) 7.5 mg DAILY PO 07/06/17 09:00 08/05/17 08:59 Future Hold Metformin HCl (Glucophage Tab) 500 mg BIDM PO 07/05/17 17:45 08/04/17 17:44 07/06/17 09:44 500 MG Hydrochlorothiazide (Hydrochlorothiazide Tab) 12.5 mg DAILY PO 07/06/17 09:00 08/05/17 08:59 07/06/17 09:43 12.5 MG Heparin Sodium (Porcine) (Heparin Sq 5000 Unit/0.5ml) 5,000 unit Q8H SQ 07/05/17 14:00 08/04/17 13:59 07/06/17 07:17 5,000 UNIT Insulin Aspart (novoLOG ASPART) SLIDING SCALE If C... ACHS SC 07/05/17 17:15 08/04/17 17:14 Glucose (Glucose 40% Gel) 15-30 GRAMS 15 GRAMS... UD PRN PO 07/05/17 12:00 08/04/17 11:59 Glucose (Glucose Chew Tab) 4-8 Tablets 4 Tabl... UD PRN PO 07/05/17 12:00 08/04/17 11:59 Dextrose (Dextrose 50% 50ML Syringe) 25-50ML OF 50% DW IV FOR... UD PRN IV 07/05/17 12:00 08/04/17 11:59 Glucagon (Glucagon Inj) 1 mg UD PRN SQ 07/05/17 12:00 08/04/17 11:59 Sodium Chloride 1,000 ml @ 100 mls/hr Q10H IV 07/05/17 13:30 07/06/17 19:29 07/06/17 11:35 100 MLS/HR Morphine Sulfate (MoRPHine SULFATE INJ) 1 mg Q4H PRN IV 07/05/17 12:15 07/19/17 12:14 Morphine Sulfate (MoRPHine SULFATE INJ) 2 mg Q4H PRN IV 07/05/17 12:15 07/19/17 12:14 Morphine Sulfate (MoRPHine SULFATE INJ) 3 mg Q4H PRN IV 07/05/17 12:15 07/19/17 12:14 Miscellaneous (Iv Fluids Completed) 1 ea PRN PRN N/A 07/05/17 14:15 07/05/18 14:14 Review of Systems Review of Systems Additional Comments: Review of systems reviewed from the history and physical and emergency room note Physical Exam Vital Signs: Vital Signs Past 12 Hours Date Time Temp Pulse Resp B/P (MAP) Pulse Ox O2 Delivery O2 Flow Rate FiO2 07/06/17 07:52 Room Air 07/06/17 07:30 36.7 63 18 166/80 (108) 97 Room Air Physical Exam: General Appearance: WD/WN, no apparent distress Eyes: bilateral eyes normal inspection ENT: hearing grossly normal Neck: no adenopathy Respiratory/Chest: lungs clear, normal breath sounds, no respiratory distress Cardiovascular: regular rate, rhythm Gastrointestinal: Abdomen: normal abdomen Assessment & Plan Assessment & Plan Assessment Left flank pain I reviewed the CT appears she has a 3-4 mm stone in the mid left ureter with mild hydronephrosis. I talked to her today about the stone and the options for treatment including #1 trial of passage with medical expulsive therapy #2 cystoscopy and possible stent placement with ESWL or ESWL by itself if the stone is visible on KUB #3 ureteroscopy laser lithotripsy stent. Currently she is not having any pain she has had no fevers or chills she would like to try to pass this on her own I will start her on Flomax
[2017-07-06 14:52] VITALS: BP 130/77; PULSE 67; TEMP 37.1; O2SAT 97
[2017-07-06] MEDS ORDERED: FLM4 PO (16:51)
--- NOTE | 2017-07-06 16:57 | Discharge Instructions ---
Discharge Instructions Date of Service Jul 06, 2017. Admission Reason for Admission: Nephrolithiasis Discharge Discharge Diagnosis / Problem: Kidney stone Discharge Goals Goal(s): Decrease discomfort, Improve function Activity Recommendations Activity Limitations: resume your previous activity . Instructions / Follow-Up Instructions / Follow-Up Follow up with PCP in 2 weeks Follow up with Urology in 1-2 weeks Strain all urine. Continue flomax If pain returns or if patient becomes feverish in next day. Please come back. Current Hospital Diet Patient's current hospital diet: AHA Diet (Heart Healthy), Diabetes Type 2 Diet Discharge Diet Recommended Diet: AHA Diet (Heart Healthy), Diabetes Type 2 Diet Pending Studies Studies pending at discharge: no Laboratory Results Hemoglobin A1c Test 04/10/17 08:10 Range/Units Estimated Average Glucose 146 mg/dl Hemoglobin A1c 6.7 H 4.5-5.6 % Lipid Panel Test 04/10/17 08:10 Range/Units Triglycerides Level 394 H 0-150 mg/dl Cholesterol Level 235 H 0-200 mg/dl HDL Cholesterol 44 mg/dl Cholesterol/HDL Ratio 5.3 LDL Cholesterol, Calculated 112 mg/dl Medical Emergencies . Who to Call and When: Medical Emergencies: If at any time you feel your situation is an emergency, please call 911 immediately. . Non-Emergent Contact Non-Emergency issues call your: Primary Care Provider, Hospital Doctor Call Non-Emergent contact if: you have a fever . . "Provider Documentation" section prepared by Steven Adame. .
--- NOTE | 2017-07-06 16:58 | Discharge Summary ---
Discharge Summary Date of Service Jul 06, 2017. Discharge Summary Admission Date: Jul 05, 2017 at 12:05 Discharge Date: Jul 06, 2017 Discharge Disposition: Home Principal Diagnosis: LEFT ureter kidney stone Problems/Secondary Diagnoses: as noted below Procedures: CT SCAN OF THE ABDOMEN AND PELVIS WITHOUT IV CONTRAST CLINICAL HISTORY: Left lower quadrant abdominal pain. COMPARISON STUDY: No priors. TECHNIQUE: CT scan of the abdomen and pelvis is performed from the lung bases to the proximal femora. Images are reviewed in the axial, sagittal, and coronal planes. IV contrast was not administered for this examination as per the referring clinician. A dose lowering technique was utilized adhering to the principles of ALARA. CT DOSE: 1552.22 mGy.cm FINDINGS: Lung bases: The heart is normal in size and without pericardial effusion. A small fat-containing Bochdalek hernia is seen at the left lung base. The lung bases are otherwise clear. There is a small hiatal hernia. Liver: The unenhanced liver is enlarged, measuring 19.5 cm in length. The liver demonstrates diminished attenuation consistent with hepatic steatosis. There is no intrahepatic biliary ductal dilatation. Gallbladder: Unremarkable. Spleen: Normal in size and attenuation. Pancreas: Unremarkable. Adrenal glands: Unremarkable. Kidneys: The unenhanced kidneys demonstrate cortical atrophy. There is no right-sided hydronephrosis. There is mild left-sided hydroureteronephrosis with associated perinephric stranding. The right proximal ureter is not well assessed due to significant streak artifact from adjacent orthopedic hardware. A 4 mm calculus anterior to the left psoas muscle at the level of L4 seen on #200 may represent an obstructing left ureteral calculus or less likely a phlebolith along the course of the gonadal vein. A 1.3 cm exophytic cyst arises from the left kidney. There are least 3 additional punctate nonobstructing left renal calculi. There are at least 3 punctate nonobstructing right renal calculi. Small parapelvic cysts are noted on the right. There is a circumaortic left renal vein. Abdominal vasculature: The abdominal aorta is normal in course and caliber noting moderate atherosclerotic calcification. Bowel: There is mild colonic diverticulosis without CT evidence of acute diverticulitis. No bowel obstruction is seen. The appendix is well-visualized and normal. Peritoneum: There is no intraperitoneal free air or abdominal ascites. Lymphadenopathy: None. Pelvic viscera: The bladder is normal as visualized. The uterus is surgically absent. No adnexal lesion is seen. Skeletal structures: The skeletal structures are osteopenic. There is moderate lumbosacral spondylosis with postoperative changes from L4 -S1 spinal fusion. A bone graft donor site is suggested in the right ilium. No lytic or blastic lesions are seen. IMPRESSION: 1. There is mild left hydroureteronephrosis. There is likely a 4 mm obstructing calculus in the left proximal ureter at the level of L4. The calcification is difficult to definitively localize within the left ureter secondary to significant adjacent streak artifact from metallic orthopedic hardware. A phlebolith is considered less likely. 2. Additional bilateral nonobstructing calculi are present in both kidneys. 3. Hepatomegaly and hepatic steatosis. Medication Reconciliation New Medications: Tamsulosin HCl (Tamsulosin HCl) 0.4 Mg Cap 0.4 MG PO HS for 30 Days, #30 CAP Continued Medications: Albuterol Sulf (Albuterol Sulfate) 2.5 Mg/3 Ml Nebu 1 DOSE NEB Q6 PRN for SOB/Wheezing Atorvastatin (Lipitor) 80 Mg Tab 80 MG PO DAILY, TAB Folic Acid (Folvite) 1 Mg Tab 1 MG PO DAILY, TAB Guaifenesin (Mucinex Maximum Strength) 1,200 Mg Tab 1 TAB PO BID PRN for Nasal Congestion, TAB Hydrochlorothiazide (Hydrochlorothiazide) 12.5 Mg Tab 1 TAB PO DAILY, TAB Krill Oil (Krill Oil) 1 Cap Cap 1 CAP PO BID Lisinopril (Zestril) 20 Mg Tab 20 MG PO DAILY, TAB Meloxicam (Mobic) 7.5 Mg Tab 7.5 MG PO DAILY, TAB Metformin Hcl (Glucophage) 500 Mg Tab 500 MG PO BID, TAB Methotrexate (Methotrexate) 2.5 Mg Tab 2.5 MG PO WK, TAB Discharge Exam Review of Systems: Constitutional: No fever, No chills Eyes: No worsening of vision ENT: No hearing loss Respiratory: No cough, No sputum Cardiovascular: No chest pain Abdomen: No pain Musculoskeletal: No joint pain, No muscle pain Genitourinary - Female: No dysuria Neurologic: No memory loss Psychiatric: No depression symptoms Endocrine: No fatigue Hematologic / Lymphatic: No abnormal bleeding/bruising Integumentary: No rash Hospital Course MAW 71/F admitted for nephrolithiasis. She continues to be in pain and having intermittent nausea. CT imaging obtained in the ED reveals stones with mild left hydronephrosis. 1) Nephrolithiasis with hydronephrosis - intravenous hydration - IV morphine for pain management - order toradol x1 now - Urology consultation; will appreciate recommendations -Will have patient discharged on flomax and consider f/u with Urology as oiutpatient. Patient wants to be discharged and try flomax as outpatient as she is currently asymptomatic. I explaind to patient that if pain returns to come back to hospital. 2) Diabetes Mellitus type II - check CBG as per nursing - insulin sliding scale -will resume home meds. 3) Hypertension - systolic in 160's likely 2/2 to pain - resume home antihypertensive therapy 4) Hyperlipidemia - stable; no active issues - resume atorvastatin 80 mg PO qHS 5) Hx of Rheumatoid arthritis - stable; no active issues - resume weekly MTX q Friday Admit: Med/Surg Diet: Heart Healthy Activity ad parish DVT ppx SQ heparin Precautions: Standard Code Status: FULL Total Time Spent: Greater than 30 minutes This includes examination of the patient, discharge planning, medication reconciliation, and communication with other providers. Discharge Instructions Please refer to the electronic Patient Visit Report (Discharge Instructions) for additional information. Follow-Up As stated in discharge instruction Additional Copies To Ariana Gonzalez C.R.N.P
[2017-07-06] MEDS ORDERED: TAMSULOSIN HCL 0.4 MG CAP PO ONE (17:00)
[2017-07-06 18:15] VITALS: BP 130/77; PULSE 67; TEMP 37.1; O2SAT 97
[2017-07-06] MEDS ORDERED: TAMSULOSIN HCL 0.4 MG CAP PO SCH (21:00)
== END 2017-07-06 18:50 | disposition home or self-care (01) ==
LOC: C.EDB 07:31 → C.MSW 12:05 → ENRESERV 12:13
PROVIDERS: ADMIT Internal Medicine; ATTEND Internal Medicine
DX: N20.0 Calculus of kidney (principal); N13.30 Unspecified hydronephrosis; M06.9 Rheumatoid arthritis, unspecified; E11.9 Type 2 diabetes mellitus without complications; E78.5 Hyperlipidemia, unspecified; I10 Essential (primary) hypertension; Z87.891 Personal history of nicotine dependence; Z79.899 Other long term (current) drug therapy; Z79.84 Long term (current) use of oral hypoglycemic drugs; Z91.040 Latex allergy status; Z88.8 Allergy status to other drugs, medicaments and biological substances